=== PATIENT | male | born 1970 | race Caucasian/White ===

== ENCOUNTER 2019-05-27 18:24 | Emergency (ER) | payer OTHER, SELFPAY ==
[2019-05-27 18:17] VITALS: BP 125/66; PULSE 83; RESP 18; TEMP 36.7; O2SAT 96
--- NOTE | 2019-05-27 19:02 | ED.GENADUL_ITS ---
Discharge Plan Disposition Patient Disposition: HOME Condition: Good Discharge Details Chief Complaint: Allergic Clinical Impression: Allergic reaction Primary Care Provider: None,None ED Provider: Angela Yusuf Home Meds and New Rx's Prescriptions: New prednisone 50 mg tablet 50 mg PO DAILY Qty: 4 RF: 0 Continued pantoprazole 40 mg Tablet,Delayed Release (Dr/Ec) 40 mg PO DAILY RF: 0 fluoxetine 20 mg Capsule 60 mg PO DAILY RF: 0 buprenorphine-naloxone [Suboxone] 2-0.5 mg Film 1 BUCCAL DAILY RF: 0 Discharge Instructions Instructions: General Allergic Reaction (ED) Additional Instructions: Drink plenty of fluids. Rest activities as tolerated. Use medications as prescribed for the next 4 days to prevent any return of allergic reaction. This can cause some agitation and restlessness. May use Benadryl for any persistent itching Return to the ER for any return of symptoms, worsening, or concerns sooner if needed Discharge Data Discharge Date/Time-TO BE ENTERED AT DEPARTURE: 05/27/19 23:00 Medical Decision Making Is a 48-year-old patient who presents to the emergency room today from the correctional facility after ingesting tomatoes in his meatloaf. Patient reports after first bite of meat loaf he had onset of throat swelling, tightness, itching around his eyes, trunk rash and itching. Patient received an EpiPen and soon thereafter within 10 minutes patient reports his symptoms resolved. At this time patient feels that his baseline. Patient currently denies any sensation of throat tightness or swelling, perioral swelling, difficulty leander athing shortness of breath. Patient has mild scattered wheezing due to recent pneumonia which she reports is unchanged. Patient denies abdominal pain, nausea, vomiting or diarrhea. On physical exam patient does have excoriated areas on the chest but no persistent hive-like rash. Patient has no perioral swelling, no tongue swelling, mild pharyngeal erythema but no edema, uvula is midline. Patient does have scattered wheezes on his breath sounds however he does report a significant bilateral pneumonia recently and he has no change in his cough or wheezing at this time. Patient's vital signs are stable. We will observe this patient for period of 4 hours after having received epi Over patient's period of 4 hours he continues to feel well. Has no respiratory difficulty. Has no new rash. Vital signs remained stable. After this period of time will discharge home. Plan of care to prescribe prednisone for the next 4 days and given initial tablet at this time to prevent any rebound effects of allergic reaction. Patient agrees with plan of care. He feels comfortable discharge at this time. The patient was stable and requested discharge. Prior to discharge, my usual and customary return precautions were reviewed with the patient - this included follow-up instructions and reasons to return to the Emergency Department if conditions worsens, does not improve as expected, or ot her new concerns arise. HPI General Date/Time Provider Initiated Documentation: 05/27/19 18:40 . HPI Narrative: This is a 48-year-old patient who presents for an allergic reaction. Patient is currently incarcerated and in police custody. Patient was given meatloaf for dinner. Patient has a history of tomato anaphylaxis. Patient reports after first bite of meat loaf he began to feel his throat swelling. Patient very familiar with sensation of anaphylaxis as he has significant medical allergies. Patient reports onset of throat swelling as well as itching through his trunk and rash to the chest and neck. Patient received epinephrine and 5 minutes. Patient reports within 10 minutes of receiving epinephrine his symptoms almost entirely resolved. Patient reports at this time he feels at his baseline. Patient denies any significant headache or dizziness. Reports feeling mildly racy after epinephrine. Patient denies chest pain, difficulty breathing shortness of breath or wheezing at this time patient denies any nausea, vomiting or abdominal pain. Patient denies any swelling. Patient's rash on trunk has resolved. No other concerns or complaints at this time. Related Data Home Medications Medication Instructions Recorded Confirmed buprenorphine-naloxone [Suboxone] 1 BUCCAL DAILY 05/27/19 fluoxetine 60 mg PO DAILY 05/27/19 05/27/19 pantoprazole 40 mg PO DAILY 05/27/19 05/27/19 prednisone 50 mg PO DAILY #4 tab 05/27/19 Previous Rx's Medication Instructions Recorded prednisone 50 mg PO DAILY #4 tab 05/27/19 Allergies Allergy/AdvReac Type Severity Reaction Status Date / Time anise oil Allergy Unverified 05/27/19 18:57 anjali seed Allergy Unverified 05/27/19 18:57 ciprofloxacin [From Cipro] Allergy Unverified 05/27/19 18:57 cumin Allergy Unverified 05/27/19 18:57 Latex, Natural Rubber Allergy Unverified 05/27/19 18:57 neomycin Allergy Unverified 05/27/19 18:57 Penicillins Allergy Unverified 05/27/19 18:57 tomato Allergy Unverified 05/27/19 18:57 tree nut Allergy Unverified 05/27/19 18:57 General Stated Complaint: Allergic JACE: 3 Review of Systems All systems reviewed & are unremarkable except as noted in HPI and below Constitutional Constitutional: Denies chills, Denies fatigue, Denies fever(s), Denies head ache(s) and Denies malaise Eyes Eyes: Reports itchy eyes (Resolved) ENT Ears, Nose, Mouth, and Throat: Denies headache(s), Denies lip swelling, Denies nasal discharge, Reports throat swelling (Resolved) and Denies tongue swelling Respiratory Respiratory: Reports cough (Persistent due to recent pneumonia) and Reports wheezing (Mild which he reports is due to recent pneumonia) Gastrointestinal Gastrointestinal: Denies abdominal pain, Denies heartburn, Denies diarrhea, Denies nausea and Denies vomiting Integumentary/Breasts Skin/Breast: Reports pruritus (Resolved), Reports rash (Resolved) and Denies skin swelling Neurologic Neurologic: Denies headache(s) Endocrine Endocrine: Denies fatigue Allergic/Immunologic Allergic/Immunologic: Reports itchy eyes (Resolved), Denies lip swelling, Reports throat swelling (Resolved), Denies tongue swelling and Reports wheezing (Mild which he reports is due to recent pneumonia) [facility] Social History Smoking/Tobacco Use Status: Former Tobacco Use Alcohol Intake: never Drug use: Never Substance use type: does not use Exam Narrative Exam Narrative: CONST: Healthy appearing patient, in no acute distress. Well hydrated. Alert and alert. HENMT: Head nomocephalic, normal to inspection. Atraumatic. Hearing grossly normal. External ear canal no erythema or swelling. TM normal bilaterally. Nose normal to inspection. No rhinnorhea. Normal facial exam. Oral mucosa normal. Tounge normal. Dentition normal. Normal posterior oropharynx. Uvula midline. EYES: General normal appearance. Alignment normal. Eyelids normal. Conjunctiva normal. Sclera normal. PERRL. NECK: Normal visual inspection. FROM. No lymphadenopathy. Trachea midline. No Midline tenderness. CHEST: Normal insepection of the chest. Excoriated areas on chest and trunk due to recent scratching however no rash at this time RESP: Normal respiratory effort. Speaking full sentences. No cough. Scattered, scant wheezing. No retractions. Clear to auscaltation. Breath sound equal and present bilaterally. CARDIO: No JVD. Normal PMI. Regular Rate. Regular Rhythm. Normal peripheral pulses. GI: Normal inspection of abdomen. No distension. Soft. Nontender. Bowel sounds present in all 4 quadrants. No rebound. No gaurding. MUSCULOSKELETAL: Normal Gait. FROM of all extremities. Distal neurovascularly intact. Sensation intact distally. SKIN: Normal. Dry. No rashes. NEURO: Alert and awake. Speech clear. PSYCH: Normal affect. Cooperative. Course Vital Signs Vital signs: Vital Signs Temperature 36.7 C 05/27/19 18:17 Pulse 83 05/27/19 18:17 Respiratory Rate 18 05/27/19 18:17 Blood Pressure 125/66 05/27/19 18:17 Pulse Oximetry 96 05/27/19 18:17 Temperature 36.7 C 05/27/19 18:17 Temperature Source Temporal Artery Scan 05/27/19 18:17 Pulse 83 05/27/19 18:17 Respiratory Rate 18 05/27/19 18:17 Respiratory Effort Non-Labored 05/27/19 18:20 Respiratory Pattern Normal 05/27/19 18:20 Blood Pressure 125/66 05/27/19 18:17 Blood Pressure Position Sitting 05/27/19 18:17 Pulse Oximetry 96 05/27/19 18:17 Oxygen Delivery Method Room Air 05/27/19 18:17 Oxygen Flow Rate 0 05/27/19 18:17
[2019-05-27] MEDS: Normal Saline 1,000 ML 1000 ML IV (19:04)
[2019-05-27] MEDS: Normal Saline Flush 10 ML SYR IVP (19:04)
--- NOTE | 2019-05-27 21:29 | NUR.NOTE ---
Nursing Note: 1930 Pt sleeping, woke easily to voice. Denies any symptoms of allergic reaction at this time. Pt denies SOB and itching. Officer remains at bedside with patient. Pt also remains handcuffed to the bed. Frequent breaks have been given per fire officer. No circulation complications at this time. Will continue to monitor pts status. 2024 No changes at this time. No needs at this time.
--- NOTE | 2019-05-27 21:34 | NUR.NOTE ---
Nursing Note:2133 Pt remains free from symptoms, no SOB or itching. Officer remains at bedside. Continuing to monitor pts status.
[2019-05-27 22:52] VITALS: TEMP 37
[2019-05-27] MEDS: diphenhydrAMINE 25 MG CAP 50 MG PO (22:52)
[2019-05-27] MEDS: predniSONE 20 MG TAB 60 MG PO (22:55)
[2019-05-27 23:07] VITALS: BP 119/80; PULSE 80; RESP 16; TEMP 37.4; O2SAT 99
== END 2019-05-27 23:00 | disposition home or self-care (01) ==
PROVIDERS: Emergency Provider Physician Assistant
DX: T78.04XA Anaphylactic reaction due to fruits and vegetables, initial encounter (principal); R09.89 Other specified symptoms and signs involving the circulatory and respiratory systems; R21 Rash and other nonspecific skin eruption; L29.9 Pruritus, unspecified
CPT/HCPCS: 96360; 96361; 99284; J7512

== ENCOUNTER 2019-06-29 03:52 | Emergency (ER) | payer OTHER, SELFPAY ==
[2019-06-29] VITALS (33 sets, daily range): BP systolic 100–200; BP diastolic 65–181; PULSE 56–116; RESP 13–25; TEMP 36.6; O2SAT 87–96
--- NOTE | 2019-06-29 03:57 | ED.GENADUL_ITS ---
Discharge Plan Disposition Patient Disposition: [facility] Condition: Stable Discharge Details Chief Complaint: Chest Pain Clinical Impression: Chest pain Primary Care Provider: None,None ED Provider: Bob Conner Home Meds and New Rx's Prescriptions: Continued pantoprazole 40 mg Tablet,Delayed Release (Dr/Ec) 40 mg PO DAILY RF: 0 fluoxetine 20 mg Capsule 60 mg PO DAILY RF: 0 buprenorphine-naloxone [Suboxone] 2-0.5 mg Film 1 film BUCCAL DAILY RF: 0 Discharge Instructions Instructions: Chest Pain (ED) Additional Instructions: if your pain significantly worsens or you have difficulty breathing return to the emergency department Medical Decision Making 48 yo male with hx of substance abuse on suboxone and denies any recent drug use, gerd, who comes in with cc of chest pain. He states he had a burning sensation and nausea that woke him up from sleep. Denies vomit, fevers, sob. EMS arrived and gave him 4 of zofran which decreased his pain from a 8/10 to 4/10 and then nitro x1 resolved the pain and has no pain now. He has no jvd, clear lungs, no murmurs, no evidence of dvt on exam. Suspect this could be esophageal spasm, heart score is 2, will send troponin. No tearing back pain so doubt dissection. Wells score low, will send d dimer to screen for PE labs and xray unremarkable, remains asymptomatic, will obtain delta troponin and monitor remains symptoms free, eating and drinking in no distress. Delta troponin negative, will d/c with return precautions Differential Diagnosis Differential Diagnosis: esophageal spasm, nstemi, pe Imaging Data Radiologic Study: Attestation: I personally reviewed and interpreted this imaging study as follows: Imaging: X-Ray Radiologist's impression: no acute findings Lab Data Lab results reviewed: Yes I reviewed the patient's lab results. ECG Data Attestation: I personally reviewed and interpreted this ECG (s) as follows: Prior ECG tracings: not available for review Interpretation: sinus rhythm, rate of 65, pr 122, qtc 445 HPI General Mode of arrival: EMS . Date/Time Provider Initiated Documentation: 06/29/19 03:57 . Limitations to Documentation: no limitations . Information obtained by: patient . History of Present Illness 48 year old M presents to the emergency department with the chief complaint of chest pain, described as moderate, and is localized to the chest. Patient reports no radiation. Patient started experiencing this hour(s) (1) and it has been now resolved. No relieving factors improve symptom(s), No exacerbating factors reported . Patient did receive the following treatments prior to arrival, none Related Data Home Medications Medication Instructions Recorded Confirmed buprenorphine-naloxone [Suboxone] 1 film BUCCAL DAILY 05/27/19 06/29/19 fluoxetine 60 mg PO DAILY 05/27/19 06/29/19 pantoprazole 40 mg PO DAILY 05/27/19 06/29/19 Allergies Allergy/AdvReac Type Severity Reaction Status Date / Time anise oil Allergy Unverified 06/29/19 04:04 anjali seed Allergy Unverified 06/29/19 04:04 ciprofloxacin [From Cipro] Allergy Unverified 06/29/19 04:04 cumin Allergy Unverified 06/29/19 04:04 Latex, Natural Rubber Allergy Unverified 06/29/19 04:04 neomycin Allergy Unverified 06/29/19 04:04 Penicillins Allergy Unverified 06/29/19 04:04 tomato Allergy Unverified 06/29/19 04:04 tree nut Allergy Unverified 05/27/19 18:57 General JACE: 3 Review of Systems All systems reviewed & are unremarkable except as noted in HPI and below Constitutional Constitutional: Denies chills, Denies fever(s) and Denies weakness Cardiovascular Cardiovascular: Denies dyspnea Respiratory Respiratory: Denies cough and Denies dyspnea Gastrointestinal Gastrointestinal: Denies abdominal pain, Denies nausea and Denies vomiting Musculoskeletal Musculoskeletal: Denies joint swelling Neurologic Neurologic: Denies weakness Psychiatric Psychiatric: Denies depression [facility] Social History Smoking/Tobacco Use Status: Former Tobacco Use Alcohol Intake: former Drug use: Never Substance use type: former substance user Do you feel safe at home: Yes Exam Const General: no acute distress Orientation: alert HENMT Head: normal to inspection Ears: external ears normal General nose exam: external nose normal Mouth: moist mucous membranes Eyes General: appearance normal, both eyes and all related structures Neck Neck: normal visual inspection Resp Effort & Inspection: normal respiratory effort and able to speak in complete sentences Cardio Rate: regular rate Skin General skin exam: no rashes or lesions noted Neuro General: alert and oriented x3 Extrem General: normal to inspection Psych Mental Status: mental status grossly normal
[2019-06-29 04:11] LABS: Abs Immature Grans 0.03 k/cumm (0.0-0.09); Absolute Basophil Count 0.06 k/cumm (0.0-0.2); Absolute Eosinophil Count 0.24 k/cumm (0.0-0.7); Absolute Lymphocyte Count 3.12 k/cumm (1.2-3.4); Absolute Monocyte Count 0.67 k/cumm (0.11-0.7); Absolute Neutrophil Count 1.98 k/cumm (1.2-6.7); Eosinophils % 3.9; HCT 39.7 % (40.0-50.0); HGB 13.8 g/dL (13.5-17.5); Immature Grans % 0.5 %; Lymphocytes % 51.1; Mean Corp. HGB Concentration 34.8 g/dL (32.0-36.0); Mean Corpuscular Hemoglobin 30.2 pg (27.0-33.0); Mean Corpuscular Volume 86.9 fL (80-95); Mean Platelet Volume 9.8 fL (8.0-11.0); Neutrophils % 32.5; Platelet Count 261 x1000/uL (130-400); RBC 4.57 m/cumm (4.50-6.00); RBC Distribution Width 12.1 % (11.8-14.1)
--- NOTE | 2019-06-29 04:18 | DI.RAD_ITS ---
EXAM: XR CHEST 2V PA LATERAL CLINICAL HISTORY: chest pain. TECHNIQUE: 2D digital imaging was performed. COMPARISON: No exams were available for comparison FINDINGS: LUNGS: Clear. No pleural abnormality seen. HEART: Normal. MEDIASTINUM: Normal. OTHER FINDINGS:Normal. BONE:Normal. IMPRESSION: No acute pulmonary findings.
--- NOTE | 2019-06-29 04:26 | DI.VRAD_ITS ---
PROCEDURE INFORMATION: Exam: XR Chest, 2 Views Exam date and time: 06/29/2019 4:21 AM Age: 48 years old Clinical indication: Chest pain; Type not specified TECHNIQUE: Imaging protocol: XR of the chest Views: 2 views. COMPARISON: No relevant prior studies available. FINDINGS: Lungs: Unremarkable. No consolidation. Pleural space: Unremarkable. No pleural effusion. No pneumothorax. Heart/Mediastinum: Unremarkable. No cardiomegaly. Bones/joints: Unremarkable. IMPRESSION: No acute findings. Dictated and Authenticated by: Jerad Young MD. Ordering:ELISE Rojas MD
[2019-06-29 04:37] LABS: PTT Activated 23.8 sec (21.0-31.4); Prothrombin Time 10.4 sec (9.3-11.0)
[2019-06-29 04:47] LABS: ALT 52 U/L (16-63); AST 44 U/L (15-37); Alkaline Phosphatase 89 U/L (46-116); Anion Gap 5.9 mmol/L (3-11); BUN 7 mg/dL (7-18); Bilirubin, Total 0.3 mg/dL (0.2-1.0); CO2 32.1 mmol/L (21.0-32.0); CREATININE 0.79 mg/dL (0.70-1.30); Calcium 8.2 mg/dL (8.5-10.1); Chloride 105 mmol/L (98-107); Glucose 114 mg/dL (74-106); Lipase 123 U/L (73-393); Potassium 3.5 mmol/L (3.5-5.1); Sodium 143 mmol/L (136-145); Total Protein 5.8 g/dL (6.4-8.2)
[2019-06-29 04:50] LABS: Troponin I < 0.05 ng/Ml (<0.06)
[2019-06-29 04:56] LABS: D-Dimer 181 ng/mlFEU (<500)
--- NOTE | 2019-06-29 06:49 | NUR.NOTE ---
Nursing Note: Repeat troponin drawn and sent to lab.
--- NOTE | 2019-06-29 07:05 | NUR.NOTE ---
Nursing Note: Report to Pari NARAYAN
[2019-06-29 07:18] LABS: Troponin I < 0.05 ng/Ml (<0.06)
== END 2019-06-29 07:31 | disposition home or self-care (01) ==
LOC: ER 07:33
PROVIDERS: Emergency Provider Emergency Medicine
DX: R07.89 Other chest pain (principal)
CPT/HCPCS: 80053; 83690; 93005; 99284; 71046; 82248; 84484; 85025; 85379; 85610; 85730; 93010; 99283